=== PATIENT | female | born 1945 | race Caucasian/White ===

== ENCOUNTER → 2018-03-27 | Outpatient (CLI) | payer MEDICARE ==
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
== END ==
LOC: SLEEP 15:00
PROVIDERS: ATTEND Internal Medicine Critical Care Medicine
DX: G47.10 Hypersomnia, unspecified (principal); G47.411 Narcolepsy with cataplexy; E11.9 Type 2 diabetes mellitus without complications; E78.5 Hyperlipidemia, unspecified; M19.90 Unspecified osteoarthritis, unspecified site; Z79.899 Other long term (current) drug therapy; Z79.84 Long term (current) use of oral hypoglycemic drugs; Z79.82 Long term (current) use of aspirin; Z79.4 Long term (current) use of insulin
CPT/HCPCS: 99211

== ENCOUNTER → 2018-10-09 | Outpatient (CLI) | payer MEDICARE ==
--- NOTE | 2018-10-09 17:29 | PN ---
PROGRESS NOTE This is a 73-year-old patient coming in to discuss the results of her sleep study. The patient initially came to me for symptoms of hypersomnia and sleepiness. The patient was seen in consultation on 03/27/2018. She also claims to have had narcolepsy more than 50 years ago. The exact diagnostic and therapeutic conditions were not clear to me. At that time the patient was treated with Provigil. Note that the patient was having an [place] score of 23. She did not give me any convincing history of cataplexy. She had vivid dreams. No sleep paralysis. She underwent a polysomnogram and was found to have an AHI of 30.9, worse in the supine body position; her AHI while supine was 42. Sleep efficiency was poor at 51%. She had a very short REM sleep onset. She underwent a second-day MSLT and her mean sleep latency for 5 naps was quite short at 2.5 minutes. The patient had only one REM onset sleep. Based on the fact that the patient had a REM onset sleep on her polysomnogram, she was diagnosed having narcolepsy type 1. She is not having any clinical symptoms of cataplexy. The patient also had excessive periodic limb movements noted throughout the night; a total of 574 periodic limb movements was counted with an index of 129.7. The patient subsequently was given CPAP titration and the patient was titrated to a CPAP pressure of 10 cm of water. The patient is coming in today for a compliancy check and further advice regarding her narcolepsy treatment. On today's evaluation, the patient is using her CPAP on a regular basis. I checked her compliancy data, and the patient has been averaging a good 7-1/2 hours of CPAP use per night. Her pressure is at 10. Her CPAP use for more than 4 hours is about 99%. She is using an AirFit P10 extra-small nose pillow and her leak factor is 10 L/minute. Today she was trialed with an under-nose DreamWear mask, small size, which she liked, and she is willing to switch. 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 No cataplexy has been noted by the patient. Her sleep is very fragmented and has been also documented on her polysomnogram. Despite CPAP therapy, the patient continues to have increased arousal index. I discussed with her various treatment options. She has tried Provigil in the past, and she was more inclined to proceed with Xyrem, which is approved typically for type 1 narcolepsy. Despite the fact that the patient does not have any cataplexy, I thought Xyrem is an adequate medication for her, which will improve her sleep quality in general and improve her sleep fragmentation. PHYSICAL EXAMINATION: Her current vital signs are as follows: BP 139/51, pulse 78, respirations 16, temperature 97.4. [place] score is 22. Saturation 98% on room air. Weight is 186. GENERAL APPEARANCE: Calm, comfortable. Head is atraumatic, normocephalic. Neck is supple. There is no JVD. No goiter or neck mass. LUNGS: Clear to auscultation. Heart sounds are regular rate and rhythm. Normal S1, S2. No S3. No S4. No murmurs. Abdomen is soft, nontender. No organomegaly. EXTREMITIES: No edema. No cyanosis or clubbing. REVIEW OF SYSTEMS: Fourteen-point review of systems was done. Positive for increased sleepiness and tiredness and fatigue. Sleep fragmentation. No cataplexy. No hallucinations or active sleep paralysis at this point in time. No other complaints. No recent weight gain or weight loss. No history of depression. No history of intake of any alcohol or breathing-suppressant agent. She does not take any narcotics. No history of any substance abuse. IMPRESSION: 1. Severe symptomatic obstructive sleep apnea with apnea/hypopnea index of 30.9, worse in the supine body position, currently on adequate treatment with CPAP pressure of 10. 2. Poor sleep efficiency, improved with CPAP therapy, yet the patient continues to have ongoing issues with sleep fragmentation and disrupted sleep. 3. 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 4. Sleep fragmentation. 5. Severe periodic limb movements. 6. Chronic hypersomnia; [place] score of 22. PLAN: 1. Continue CPAP therapy at the pressure of 10. 2. Change the patient to a DreamWear nose mask, small size, head gear and small-sized nose piece. 3. Discussed treatment options for narcolepsy. The patient was given different options. The patient was interested in initiating Xyrem treatment. She has been treated in the past with Provigil and the response has been somewhat suboptimal. Based on that, we decided to proceed with Xyrem for this patient. Appropriate paperwork was completed to enroll this patient in Xyrem treatment. She was given information about Xyrem which included information about not drinking alcohol or taking any medication that may slow the breathing or mental activity. The serious side effects of Xyrem were mentioned to her, including trouble breathing while asleep, confusion, disturbance in thoughts, depression and passing out. The patient was told not to drive a car or operate heavy machinery while on the treatment, and various other information on storage and use of the medication and dosing was also explained. Appropriate paperwork was completed and literature was given regarding this medication. I am hoping, with the help of a specialty pharmacy, we should be able to initiate the treatment at a dose of 4.5 grams initially, to be titrated by 0.75 gram on a weekly basis to reach a maximum dose of 9 grams if possible. I will see her back in 2 months' time in followup to assess her treatment response. Will continue to follow and make further recommendations based on her progress. Her CPAP was checked and she is compliant for now. We will continue to follow. MMODL / IJN: [id number] /
== END | disposition home or self-care (01) ==
LOC: SLEEP 15:34
PROVIDERS: ATTEND Internal Medicine Critical Care Medicine
DX: G47.33 Obstructive sleep apnea (adult) (pediatric) (principal); G47.419 Narcolepsy without cataplexy; G47.61 Periodic limb movement disorder; Z99.89 Dependence on other enabling machines and devices

== ENCOUNTER → 2019-02-05 | Outpatient (CLI) | payer MEDICARE ==
--- NOTE | 2019-02-05 13:08 | PN ---
PROGRESS NOTE This 74-year-old female is following up with me regarding her LEE and narcolepsy. Diagnosis patient having severe LEE and a case of type 2 narcolepsy. Since her diagnosis, the patient was offered a CPAP pressure of 11 cm of water and she was also offered Xyrem ]regarding her narcolepsy as the patient was excessively somnolent and sleepy. On today's evaluation, the patient is feeling much better. Her says that this is the first time that she was able to go to [facility] and stay awake and follow up with all of the [facility] activities. At times she still takes power naps around 5 to 10 minutes which gives a significant amount of relief. She is going to bed around 11 p.m., waking up at 8 a.m. in the morning and she is averaging around 8 hours of sleep at least. She is very compliant with CPAP therapy. She missed only few days when she had no power. Otherwise, she is using the CPAP at a pressure of 11 cm of water. Based on the compliance data the patient has been achieving more than 4 hours, 27 out of the past 30 days. Her average CPAP use is around 8.1 hours per night. Leak is 10/L per minute and AHI is down to 9. Note that she has an AHI of 4 in regards to central events. She is using Broderick FX nose pillows. Her leak factor is only 10 L/minute. Her weight has been essentially stable, she has gained a few pounds since our last evaluation. Probably in the order of 5 pounds overall. As for the narcolepsy, the patient is feeling great. She is getting more used to Xyrem and we were able to lower the dose to 3 g twice a day. The patient was experiencing side effects. The side effects have completely subsided and the patient is working with specialty pharmacy and currently she is up to 3.25 mg p.o. b.i.d. She takes 2 doses. No headaches, no fluid retention, no other complaints at all. She has no sleep paralysis, no hallucinations, no cataplexy. Treatment as such is successful and the patient is quite happy and content with the clinical response. [place] score has dropped down to 17. REVIEW OF SYSTEMS: A 14-point review of system was done. Positive findings are mentioned above in the history of present illness. The patient denies having any headaches. No nausea. No vomiting. No paralysis, hallucinations or cataplexy. No snoring while on CPAP therapy. There are a few pounds weight gain. No cough, no sputum production. No chest tightness, no wheezing. No shortness of breath. PHYSICAL EXAMINATION: BP 146/77, pulse 86, respirations 16, temperature 98.0, saturation 95% on room air. Height is 5, 5, weight is 202 and BMI 33.1. GENERAL APPEARANCE: Calm, comfortable. HEAD: Atraumatic, normocephalic. NECK: Supple. There is no JVD. No goiter or neck masses. LUNGS: Clear to auscultation. HEART: Sounds regular rate and rhythm. Normal S1, S2. No S3. No murmurs. ABDOMEN: Soft, nontender. No organomegaly. EXTREMITIES: No edema. No cyanosis or clubbing. NEUROLOGIC: The patient is alert and oriented x3. No focal neurological deficits. PSYCHIATRIC: Negative for anxiety or depression. IMPRESSION: 1. Severe symptomatic obstructive sleep apnea with an apnea-hypopnea index of 30.9, worse in the supine body position and the patient has had successful CPAP therapy at a pressure of 11 cm of water. The patient is quite compliant. 2. Narcolepsy, type 2, currently on Xyrem. 3. Hypersomnia, improving and [place] score is down to 7. 4. Periodic limb movements. 5. Sleep fragmentation, improved. 6. Obesity. PLAN: 1. Encourage weight loss. 2. Continue CPAP therapy. 3. Gradual escalation of the Xyrem dose to reach a maximum dose of 3.75 g twice a day which will add up to total of 7.5 kg. I will leave it at that point, and probably not increase dose any further, unless she sees me back in followup in 6 months' time. She is working also with specialty pharmacy regarding her Xyrem dosing and instructions. Encourage weight loss. Optimize sleep hygiene measures. This was discussed with the patient at length. Power naps are plausible as long as it is relieves some of her tiredness and sleepiness. Will continue to follow. See me back in 6 months' time in followup. MMODL / IJN: [id number] /

== ENCOUNTER → 2020-09-01 | Outpatient (CLI) | payer MEDICARE ==
--- NOTE | 2020-09-01 15:55 | PN ---
PROGRESS NOTE A 75-year-old female patient coming in for an annual check regarding obstructive sleep apnea and narcolepsy. In terms of obstructive sleep apnea, the patient has done very well. I checked the compliance data over the past year and I also checked it over the past month. The patient's compliance has remained steadily well and she has been using the machine regularly. Based on a 30-day compliancy, the patient has achieved CPAP use for more than 4 hours around 80% of the time. She is averaging around 7 hours per night of CPAP use and her leak is in order of 31 L/minute and her AHI is down to 2.6. Note that the patient has been maintained on a CPAP pressure of 11 cm of water for severe obstructive sleep apnea. Her interim history is positive for significant amount of weight gain. Note that at the time of her diagnosis, her AHI was 30 and she used to weigh above 200 pounds. Currently with use of Trulicity, the patient has lost a considerable amount of weight and current weight is down to 157. She remains on Lantus also for blood sugar control. She feels that the pressure is quite high and it is bothering her at night. It is possible that the severity of sleep apnea has improved and the pressure needs to be lowered. She is using the AirFit P10 nasal pillow extra- small. No snoring while on the CPAP. She is going to bed around 11 p.m., wakes up 7:30 a.m. in the morning. She does not take any major naps during the day. No need for any power naps as the patient's narcolepsy has been effectively treated with Xyrem 4.5 grams 2 doses overnight. She takes her first dose at bedtime and a second dose 3 hours into her sleep. No drowsiness. No sleepiness. No significant hypertension. No fluid retention. No salt retention. No nausea. No emesis. No headaches. No episodes of falling asleep during day-to-day activities and no sleep paralysis or hallucinations or cataplexy reported at this point in time. No substance abuse. No head trauma. No history of alcoholism. Interval history is positive for significant amount of weight loss. REVIEW OF SYSTEMS: Positive for weight loss and improved in sleepiness. The patient's [place] score is down to 10. No sleep paralysis. No hallucinations. No cataplexy. No headaches. No nausea. No vomiting. No other complaints otherwise. PHYSICAL EXAMINATION: Blood pressure is 148/82, pulse 77, respirations 16, temperature 97.4, saturation 96% on room air. Height is 5 feet 6 inches. Weight is 157 and body mass index is 25.3. [place] score is a 10. GENERAL APPEARANCE: Calm, comfortable. HEAD: Atraumatic, normocephalic. NECK: Supple. There is no JVD. No goiter or neck masses. Mallampati class 3-4. LUNGS: Clear to auscultation. HEART: Heart sounds are regular rate and rhythm. Normal S1, S2. No S3, S4. No murmurs. ABDOMEN: Soft, nontender. No organomegaly. EXTREMITIES: No edema. No cyanosis or clubbing. IMPRESSION: 1. Narcolepsy, affectively treated with a therapeutic dose of the Xyrem 4.5 grams times 2, making it a total of 9 grams overnight. No side effects. No sleep paralysis. No hallucinations. No cataplexy. No major hypersomnia. [place] score is down to 10. The patient has a type 2 narcolepsy. 2. Hypersomnia, improved. 3. Obstructive sleep apnea with an AHI of 31. The patient has lost considerable amount of weight. Despite that, she continues to be compliant with CPAP therapy. 4. Periodic limb movement activity. 5. Obesity. 6. Diabetes mellitus, currently on a combination of Lantus and Trulicity. PLAN: 1. Encourage further weight loss. 2. In regard to obstructive sleep apnea, we will switch this patient to an APAP mode with a minimum pressure of 5 and a maximum pressure of 10 and this will allow the CPAP machine to deliver lower pressures if needed especially with her underlying weight loss. She has the AirFit P10 nasal pillows and I also gave her a DreamWear under the nose nasal mask to use and let me know if this is something that she would like to use in the future. I would like also to repeat a home sleep study to assess the presence and severity of obstructive sleep apnea in light of her weight loss and decide if ongoing CPAP therapy is needed. 3. Refill Xyrem at a dose of 4.5 grams x2 doses. The patient is receiving a total of 9 grams overnight. No side effect to the treatment. 4. Maintain regular sleep schedule and sleep hygiene. 5. Treatment is successful. No other issues for now. 6. See me back in 6 months' time for followup. MMODL / IJN: [id number] /
== END ==
LOC: SLEEP 13:16
PROVIDERS: ATTEND Internal Medicine Critical Care Medicine
DX: G47.419 Narcolepsy without cataplexy (principal); G47.33 Obstructive sleep apnea (adult) (pediatric); G47.61 Periodic limb movement disorder; E11.9 Type 2 diabetes mellitus without complications; E66.9 Obesity, unspecified; Z68.25 Body mass index [BMI] 25.0-25.9, adult; Z79.4 Long term (current) use of insulin

== ENCOUNTER → 2020-12-15 | Outpatient (CLI) | payer MEDICARE ==
--- NOTE | 2020-12-15 15:37 | SFUN ---
SLEEP CENTER FOLLOW UP NOTE HISTORY OF PRESENT ILLNESS: Maribel is 75 with a history of obstructive sleep apnea, narcolepsy. I diagnosed this patient with narcolepsy a few years ago. Nevertheless the patient has carried this diagnosis for many years. She has been treated with stimulants in the past. I repeated her PSG MSLT and diagnosis was re-established back in and since then, the patient has been on Xyrem. Note that she was having cataplexy in the past and none for now. She is currently on Xyrem 4.5 grams 2 divided doses. She is going to bed around 10:30 pm where she takes her 1st dose of Xyrem 4.5 g and she takes the second dose of Xyrem at around 1:30-2:00 a.m. and ultimately she gets out of bed at around 6:30 am in the morning. No hallucinations. No cataplexy has been noted. She is not driving. She can fall asleep still in the car whenever her is driving. She is taking on and off power naps around 10 to 20 minute naps and she feels refreshed following that. She was considering to take herself off the CPAP therapy. I rechecked her home sleep study on 09/16/2020 and the patient was confirmed again to have persistent obstructive sleep apnea with an AHI of 29, and as such, I have made recommendations for this patient to continue using her CPAP therapy. She remains on an APAP mode at a pressure minimum of 5, maximum of 15. On today's compliance data, the patient utilized her machine 27 out of the past 30 days. She has been averaging around 6.3 hours of CPAP use per night. Her average pressure delivered by the machine is around 13.2. Leak is in order of 41 L/minute and her AHI is down to 2. She is using a ITM PowerWear [id number] mask. MEDICATION: Avastin every 8 weeks, insulin 18 units daily, pravastatin 40 mg p.o. daily, alendronate 70 mg every week, Trulicity 1.5 mg daily, Protonix 40 mg p.o. a day, lisinopril 30 mg p.o. daily, Xyrem 4.5 mg twice a day, multivitamin 1000 units every other day and aspirin 81 mg p.o. daily. SOCIAL HISTORY: The patient is a nonsmoker. No history of alcoholism. No history of IV drugs. REVIEW OF SYSTEMS: Fourteen-point review of system was done. Despite aggressive treatment of obstructive sleep apnea and narcolepsy, the patient does have some ongoing hypersomnia. [place] score is at 16. She gets most sleepy after food post dinner. No significant hypertension or fluid retention. No headaches or nausea related to Xyrem. PHYSICAL EXAMINATION: VITAL SIGNS: BP is 105/83, pulse 74, respirations 16, temperature 97.1, saturation 99% on room air. Height is 5 feet 6 inches weight is150 and BMI 24.2. GENERAL APPEARANCE: Calm and comfortable, no acute distress. HEENT: Head is atraumatic, normocephalic. NECK: Supple. No JVD. No goiter or neck masses. LUNGS: Clear with breath sounds equal and symmetrical. HEART: Heart sounds are regular rate and rhythm, normal S1, S2. No S3, S4. No murmurs. ABDOMEN: Soft, nontender, no organomegaly. EXTREMITIES: No edema, no cyanosis or clubbing. NEUROLOGIC: Awake and alert. There is no focal neurological deficit. IMPRESSION: 1. Narcolepsy, type 1 adequate treated with Xyrem. The patient is taking on and off power naps to get herself more stimulated. Her current [place] score is 16. No cataplexy. No hallucinations. No sleep paralysis. No major side effects Xyrem. However, it is reasonable to switch this patient from Xyrem to Xywav due to its lower salt content. She will be kept on the same dose of 4.5 grams 2 doses to be taken overnight at the same time. We will monitor side effect profile. 2. Obstructive sleep apnea. Most recent home sleep study showed persistent disease with an AHI of 29. The patient remains compliant with CPAP therapy. 3. Diabetes mellitus. 4. Hyperlipidemia. 5. Osteoporosis. 6. Hypertension. PLAN: 1. Continue CPAP therapy at the same pressure. The compliance data was checked and the patient seems to be quite compliant and her treatment is satisfactory. 2. Continue treatment of narcolepsy with Xyrem for now. I intend to switch this patient from Xyrem to Xywav due to lower salt content at the same dose. 3. Implement good sleep hygiene measures. 4. Take power naps. 5. Keep same sleep schedule. 6. Avoid alcoholic beverages at nighttime. 7. Not driving for now. 8. No other symptoms related to narcolepsy including cataplexy or sleep paralysis. No hallucinations. Treatment is successful for now. We will continue to follow. See me back in a year's time. MMODL / IJN: [id number] /
== END ==
LOC: SLEEP 13:54
PROVIDERS: ATTEND Internal Medicine Critical Care Medicine
DX: G47.419 Narcolepsy without cataplexy (principal); G47.33 Obstructive sleep apnea (adult) (pediatric); E11.9 Type 2 diabetes mellitus without complications; E78.5 Hyperlipidemia, unspecified; M81.0 Age-related osteoporosis without current pathological fracture; I10 Essential (primary) hypertension; Z79.4 Long term (current) use of insulin; Z79.899 Other long term (current) drug therapy

== ENCOUNTER → 2021-12-28 | Outpatient (CLI) | payer MEDICARE ==
--- NOTE | 2021-12-28 14:47 | P.PN ---
Subjective Progress Note Date: 12/28/21 I am seeing this patient in follow-up in the sleep center. There is an annual check. This is a case of narcolepsy and obstructive sleep apnea. The patient was infiltrated over the past 1 year with a combination of Xywave and CPAP machine. Note that the patient's narcolepsy was treated initially with s timulants and subsequently the patient was switched to Xyrem and following that, the patient is switched to xywave and for now, the patient is receiving a total of 9 g and a daily basis, 4.5 g twice at night in 3 hours. She is going to bed around 10:30 PM and she takes her first dose of medication following that within 3 hours, she takes her second dose. No sleepwalking. Occasional sleep talking. No sleep paralysis. No hallucinations. No cataplexy. Wakes up refreshed and alert during the day. She has maintained a regular sleep schedule. She is still taking naps to refresh herself. tells her that whenever she is at the passenger seat, she falls asleep. For the most part, her function of his GERD. She is able to perform activities of daily today life at home without having to fall asleep. No syncope. No falls. No substance abuse. No alcoholism. No intake of any other stimulants. Drinks 1 or 2 cups of coffee in the morning. Alcohol intake is minimal.. She has gained around 10 pounds since her last evaluation. At the same time, the patient is known to have obstructive sleep apnea with an AHI of 29 at baseline and the patient currently is still on APAP machine, pressure minimum is at 5 and a maximum pressure is at 15 and the patient continues to use the dreamware fullface mask, small size. I check her compliance data on the machine and the patient has been utilizing her machine every night. Compliance for more than 4 hours is 100%. She is been averaging about 6.5 hours of APAP use per night and the patient's average pressure the nebulizer machine is 13.7 cm of water and the patient's leak is in order of 12 L per minute and her AHI is down to 5.21 on treatment. No issues with aerophagia, nausea or vomiting, nocturnal chest pain, heartburn or aspiration. Objective - Exam BP is 129/70 with a pulse of 67 and respirations 16 and encephalopathy. 5 and the patient's body weight 160 pounds with a body mass index of 26.2 and oxygen saturation is 96%. The patient appeared well nourished and normally developed. Vital signs as documented. Head exam is unremarkable. No scleral icterus or corneal arcus noted. Neck is without jugular venous distension, thyromegaly, or carotid bruits. Carotid upstrokes are brisk bilaterally. Lungs are clear to auscultation and percussion. Cardiac exam reveals the PMI to be normally sized and situated. Rhythm is regular. First and second heart sounds normal. No murmurs, rubs or gallops. Abdominal exam reveals normal bowel sounds, no masses, no organomegaly and no aortic enlargement. Extremities are nonedematous and both femoral and pedal pulses are normal.Examination of the skin revealed no evidence of significant rashes, suspicious appearing nevi or other concerning lesions.Neurologically, the patient is awake and alert and the patient does not have any focal neurological deficit. Cranial nerves are essentially intact. Medication includes pantoprazole 40 mg by mouth daily, lisinopril 30 mg by mouth daily, oxybutynin 5 mg by mouth daily, glargine insulin 16 units once a day, progress to 1040 mg by mouth daily, aspirin 81 mg by mouth daily, Trulicity 1.5 mg once a week, alendronate 70 mg every week, Avastin every 3 weeks, vitamin D 1000 units every other day, Metamucil, and Xywave 4.5 g 2 doses at nighttime. 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 [place] score is still high. Nevertheless, the patient has managed to do well and the patient is not requiring any form of stimulants and she is able to perform activities of daily today life without any major difficulties with falling asleep. No sleep paralysis. No hallucinations. No cataplexy. No side effect of the medication. Taking power naps. Obstructive sleep apnea AHI of 29 with successful therapy with CPAP and the patient is currently on APAP mode pressure minimum of 5 and maximum 15 Diabetes mellitus Hyperlipidemia Osteoporosis Hypertension Plan We'll continue same treatment. Continue Xywave and monitor clinical response and side effect profile. Continue APAP therapy at level of pressures of 5 and 15 cm of water Keep the patient on the [employer] fullface mask Encourage weight loss Sleep hygiene measures of good Avoid sleep deprivation We'll continue to follow the patient came back up is in one year's time.
== END ==
LOC: SLEEP 13:57
PROVIDERS: ATTEND Internal Medicine Critical Care Medicine
DX: G47.33 Obstructive sleep apnea (adult) (pediatric) (principal); E11.9 Type 2 diabetes mellitus without complications; E78.5 Hyperlipidemia, unspecified; I10 Essential (primary) hypertension; M81.0 Age-related osteoporosis without current pathological fracture; Z99.89 Dependence on other enabling machines and devices

== ENCOUNTER 2024-06-07 12:48 | Day surgery (SDC) | payer MEDICARE ==
[2024-06-05 17:02] VITALS: BMI 22.6
[~2024-06-07 12:48] MED LIST: LACTATED RINGERS 1,000 ML IV SCH
[2024-06-07 15:10] VITALS: TEMP 97.6
[2024-06-07 15:25] LABS: Glucose,Whole Blood 85 mg/dL (70-110)
[2024-06-07] MEDS ORDERED: LIDOCAINE 1% INJ 10MG/ML (20 ML MDV) ONE (15:25)
[2024-06-07] MEDS ORDERED: PROPOFOL 10 MG/ML 20 ML VIAL IV ONE (15:25)
[2024-06-07] MEDS: IV FLUID CONTINUATION 1,000 ML IV ONE (15:25)
--- NOTE | 2024-06-07 15:49 | P.PCN ---
Date of Procedure: 06/07/24 Procedure(s) Performed: Brief history: Patient is a pleasant 79-year-old white female scheduled for an elective upper endoscopy as well as colonoscopy as a part of evaluation of abdominal pain, change in bowel habits for the last several months duration Procedure performed: Esophagogastroduodenoscopy with biopsy Colonoscopy with random biopsies Preoperative diagnosis: Abdominal pain Change in bowel habits Anesthesia: MAC Procedure: After informed consent was obtained from the patient was brought into the endoscopy unit and IV sedation was administered by anesthesia under continuous monitoring. Initially upper endoscopy was done. The Olympus GF 160 video endoscope was inserted inserted into the mouth and esophagus intubated without any difficulty and was gradually advanced into the stomach and duodenum and carefully examined. The bulb and second part of the duodenum appeared normal. The scope was then withdrawn into the stomach adequately insufflated with air and upon careful examination the antrum had mild gastritis and biopsies were done from this area. Mucosa of the body, cardia and fundus appeared normal. Multiple small gastric polyps in the gastric body which were biopsied. The scope was then withdrawn into the esophagus. The GE junction was located at 40 cm to the incisors. Small sliding-type hiatal hernia noted. The GE junction appeared regular with no erythema erosions or ulcerations. Rest of the esophagus appeared normal. Patient tolerated the procedure well. At this time the patient continued to remain sedation. Initial digital rectal examination was normal. Olympus CF 160 video colonoscope was then inserted into the rectum and gradually advanced to the cecum without any difficulty. Careful examination was performed as the scope was gradually being withdrawn. The prep was excellent. The cecum, ascending colon, transverse colon, descending colon, sigmoid colon and rectum appeared normal. Scattered sigmoid diverticulosis. Biopsies were done from the ascending and descending colon to rule out microscopic/collagenous colitis retroflexion was performed in the rectum and no lesions were noted. Patient tolerated the procedure well. Impression: 1. Upper endoscopy revealed mild antral gastritis and multiple small gastric polyps 2. Colonoscopy revealed small internal hemorrhoids but no evidence of colitis or colorectal neoplasia Recommendations: Findings of this examination were discussed with the patient as well as her family. She was advised to follow-up with the biopsy results. Follow-up in the office in 2 weeks.
[2024-06-07 15:57] VITALS: RESP 18
[2024-06-07 16:12] VITALS: BP 114/70; PULSE 78
== END 2024-06-07 16:30 | disposition home or self-care (01) ==
LOC: ORWHC2ENDO 12:48
PROVIDERS: ATTEND Internal Medicine Gastroenterology
DX: K29.50 Unspecified chronic gastritis without bleeding (principal); K31.7 Polyp of stomach and duodenum; K44.9 Diaphragmatic hernia without obstruction or gangrene; K64.8 Other hemorrhoids; K57.30 Diverticulosis of large intestine without perforation or abscess without bleeding; K21.9 Gastro-esophageal reflux disease without esophagitis; I10 Essential (primary) hypertension; E78.5 Hyperlipidemia, unspecified; E11.9 Type 2 diabetes mellitus without complications; G47.33 Obstructive sleep apnea (adult) (pediatric); G47.419 Narcolepsy without cataplexy; Z88.9 Allergy status to unspecified drugs, medicaments and biological substances; Z79.82 Long term (current) use of aspirin; Z79.84 Long term (current) use of oral hypoglycemic drugs; Z79.899 Other long term (current) drug therapy
CPT/HCPCS: 88305; 45380; 43239; J2003; J2704

== ENCOUNTER → 2024-06-12 | Outpatient (CLI) | payer MEDICARE ==
[2024-06-12 18:38] LABS: Basophils # (A) 0.05 X 10*3/uL (0.00-0.10); Basophils % (A) 0.9 %; Eosinophils # (A) 0.15 X 10*3/uL (0.04-0.35); Eosinophils % (A) 2.7 %; HCT 42.3 % (37.2-46.3); HGB 13.1 g/dL (12.0-15.0); Lymphocytes # (A) 1.85 X 10*3/uL (0.90-5.00); Lymphocytes % (A) 32.9 %; MCH 29.8 pg (27.0-32.0); MCV 96.4 FL (80.0-97.0); Mean Platelet Volume 13.9 FL (9.5-12.2); Monocytes # (A) 0.57 X 10*3/uL (0.20-1.00); Monocytes % (A) 10.1 %; NRBC Per 100 WBC 0 X 10*3/uL (0.00-0.01); Neutrophils % (A) 53.2 %; Platelet Count 264 X 10*3/uL (140-440); RBC 4.39 X 10*6/uL (4.10-5.20); WBC 5.63 X 10*3/uL (4.50-10.00)
[2024-06-12 19:58] LABS: ALT 17 U/L (8-44); AST 19 U/L (13-35); Albumin 4.4 g/dL (3.8-4.9); Albumin/Globulin Ratio 1.63 Ratio (1.60-3.17); Alkaline Phosphatase 94 U/L (41-126); Blood Urea Nitrogen 13.7 mg/dL (9.0-27.0); Calcium 9.9 mg/dL (8.7-10.3); Chloride 105 mmol/L (96-109); Globulin 2.7 g/dL (1.6-3.3); Glucose 154 mg/dL (70-110); Sodium 142 mmol/L (135-145); Total Bilirubin 0.5 mg/dL (0.3-1.2); Total Protein 7.1 g/dL (6.2-8.2)
[2024-06-12 20:29] LABS: Gliadin AB IgA, Deaminated Negative (Negative); Gliadin AB IgA, Unit 2.9 U/mL; Gliadin AB IgG, Deaminated Negative (Negative); Gliadin AB IgG, Unit <0.4 U/mL
== END | disposition home or self-care (01) ==
LOC: LABWHC1 14:22
PROVIDERS: ATTEND Nurse Practitioner Family
DX: R19.4 Change in bowel habit (principal)
CPT/HCPCS: 36415; 80053; 83516; 85025